=== PATIENT | male | born 1975 | race Caucasian/White ===

== ENCOUNTER 2016-10-11 10:44 | Inpatient (IN) | payer OTHER ==
[2016-10-11 12:04] LABS: Basophils % (Auto) 0.2 % (0.0-1.8); Hematocrit 40.2 % (35.5-45.6); Hemoglobin 13.8 gm/dl (11.8-15.2); Mean Corpuscular HGB Conc 34 % (32-34); Mean Corpuscular Hemoglobin 31 pg (28-32); Mean Corpuscular Volume 90 fl (84-94); Platelet Count 239 K/mm3 (140-440); Red Blood Count 4.45 M/mm3 (3.65-5.03); Red Cell Distribution Width 12.6 % (13.2-15.2); White Blood Count 9.8 K/mm3 (4.5-11.0)
[2016-10-11 12:20] LABS: Anion Gap 22 mmol/L; BUN/Creatinine Ratio 11.11; Blood Urea Nitrogen 10 mg/dL (9-20); Calcium 8.8 mg/dL (8.4-10.2); Carbon Dioxide 21 mmol/L (22-30); Glucose 113 mg/dL (75-100); Potassium 3.5 mmol/L (3.6-5.0); Sodium 128 mmol/L (137-145)
[2016-10-11 12:33] LABS: Creatine Kinase MB 21.2 ng/mL (0.0-4.0)
--- NOTE | 2016-10-11 13:08 | Emergency Department Report ---
ED General Adult HPI - General Chief complaint: Medical Clearance Stated complaint: POLICE CUST/NEEDS MED CLEARANCE Time Seen by Provider: 10/11/16 11:42 Source: patient Mode of arrival: Ambulatory Limitations: No Limitations - History of Present Illness Initial comments: The patient is brought to the emergency department for "medical clearance for long-term". Officer and the patient tell me that he was tased last night 1. 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 He is asymptomatic at this time however. He denies any dark-colored urine. He denies muscle cramps or pain. He denies nausea or vomiting. He hasn't had any diarrhea abdominal pain. Actually he is completely asymptomatic at this time. He doesn't give a history of hypertension. However his blood pressure was taken 2 and found to be 1 150/ 100. - Related Data Home Medications Medication Instructions Recorded Confirmed Last Taken No Known Home Medications [No 10/11/16 10/11/16 Unknown Reported Home Medications] Allergies Allergy/AdvReac Type Severity Reaction Status Date / Time No Known Allergies Allergy Unverified 10/11/16 11:19 ED Review of Systems ROS: Stated complaint: POLICE CUST/NEEDS MED CLEARANCE Other details as noted in HPI Constitutional: denies: chills, fever Eyes: denies: eye pain, eye discharge, vision change ENT: denies: ear pain, throat pain Respiratory: denies: cough, shortness of breath, wheezing Cardiovascular: denies: chest pain, palpitations Endocrine: no symptoms reported Gastrointestinal: denies: abdominal pain, nausea, diarrhea Genitourinary: denies: urgency, dysuria Musculoskeletal: denies: back pain, joint swelling, arthralgia Skin: denies: rash, lesions Neurological: denies: headache, weakness, paresthesias Psychiatric: denies: anxiety, depression Hematological/Lymphatic: denies: easy bleeding, easy bruising ED Past Medical Hx - Past Medical History Previous Medical History?: No - Surgical History Past Surgical History?: No - Social History Smoking Status: Never Smoker Substance Use Type: Alcohol, Marijuana, Methamphetamines - Medications Home Medications: Home Medications Medication Instructions Recorded Confirmed Last Taken Type No Known Home Medications [No 10/11/16 10/11/16 Unknown History Reported Home Medications] ED Physical Exam - General Limitations: No Limitations General appearance: alert, in no apparent distress - Head Head exam: Present: atraumatic, normocephalic - Eye Eye exam: Present: normal appearance, PERRL, EOMI. Absent: scleral icterus - ENT ENT exam: Present: mucous membranes moist - Neck Neck exam: Present: normal inspection - Respiratory Respiratory exam: Present: normal lung sounds bilaterally. Absent: respiratory distress - Cardiovascular Cardiovascular Exam: Present: regular rate, normal rhythm. Absent: systolic murmur, diastolic murmur, rubs, gallop - GI/Abdominal GI/Abdominal exam: Present: soft, normal bowel sounds. Absent: distended, tenderness, guarding, rebound, rigid, organomegaly, mass - Rectal Rectal exam: Present: deferred - Extremities Exam Extremities exam: Present: normal inspection - Back Exam Back exam: Present: normal inspection - Neurological Exam Neurological exam: Present: alert, oriented X3, CN II-XII intact. Absent: motor sensory deficit - Psychiatric Psychiatric exam: Present: normal affect, normal mood - Skin Skin exam: Present: warm, dry, intact, normal color. Absent: rash ED Course Vital Signs 10/11/16 11:10 Temperature 98.5 F Pulse Rate 107 H Respiratory 16 Rate Blood Pressure 156/101 O2 Sat by Pulse 98 Oximetry - Reevaluation(s) Reevaluation #1: Patient was found to have a CK of approximately 1800. He has a sodium of 128. He needs saline administration. However he is considerably hypertensive. I would hesitate to give him large boluses of saline under the circumstances. Therefore he was admitted to the hospitalist service for saline diuresis and monitoring of his CK and electrolytes. Discussed with Dr. Castro of the hospitalist service. 10/11/16 15:37 ED Medical Decision Making - Lab Data Result diagrams: 10/11/16 11:51 10/11/16 11:51 Laboratory Results - last 24 hr 10/11/16 10/11/16 10/11/16 11:51 11:51 11:51 WBC 9.8 RBC 4.45 Hgb 13.8 Hct 40.2 MCV 90 MCH 31 MCHC 34 RDW 12.6 L Plt Count 239 Lymph % (Auto) 7.4 L [place] % (Auto) 9.1 H Eos % (Auto) 0.0 Baso % (Auto) 0.2 Lymph # 0.7 L [place] # 0.9 H Eos # 0.0 Baso # 0.0 Seg Neutrophils % 83.3 H Seg Neutrophils # 8.2 H Sodium 128 L Potassium 3.5 L Chloride 89.0 L Carbon Dioxide 21 L Anion Gap 22 BUN 10 Creatinine 0.9 Estimated GFR > 60 BUN/Creatinine Ratio 11.11 Glucose 113 H Calcium 8.8 Total Creatine Kinase 1799 H CK-MB (CK-2) 21.2 H CK-MB (CK-2) Rel Index 1.1 Critical care attestation.: If time is entered above; I have spent that time in minutes in the direct care of this critically ill patient, excluding procedure time. ED Disposition Clinical Impression: Rhabdomyoma, Hyponatremia Hypertension Qualifiers: Hypertension type: unspecified secondary hypertension Qualified Code(s): I15.9 - Secondary hypertension, unspecified; I15 - Secondary hypertension Disposition: OP ADMITTED IP TO THIS HOSP Is pt being admited?: No Does the pt Need Aspirin: No Condition: Stable Instructions: Hypertension (ED) Time of Disposition: 15:43
[2016-10-11] MEDS ORDERED: NACL 0.9% 1000 ML 1,000 ML IV ONE ×2 (13:11→13:42)
[2016-10-11] MEDS ORDERED: K-DUR PO ONE (14:42)
--- NOTE | 2016-10-11 15:47 | History and Physical Report ---
History of Present Illness Date of examination: 10/11/16 History of present illness: 41-year-old man with history of OCD, anxiety was brought by the police to the emergency room for medical clearance. Patient stated that he was partying last night, he drank a lot and did amphetamines, he felt hot and too cough is pants and underpants, he went Outside the house and complex. The police arrived, he ran from the police senti was tased and brought to the emergency room for evaluation. He complains of left foot pain. Patient has a history of amphetamine abuse, as maintain sobriety for 3 years and then started again last night Patient denies chest pain, palpitation, shortness of breath, cough, abdominal pain, hematochezia, dysuria, frequency, focal weakness, dysarthria, fever chills , polydipsia polyuria, hot or cold intolerance, easy bruisability, or rash or bleeding from mucosal membrane, rhinorrhea, epistaxis, earache, tinnitus, blurry vision, eye discharge, anxiety, depression. Other review of systems negative PAST SURGICAL HISTORY: None SOCIAL HISTORY: Alcohol, amphetamine, no tobacco use FAMILY HISTORY: Hypertension Medications and Allergies Allergies Allergy/AdvReac Type Severity Reaction Status Date / Time No Known Allergies Allergy Unverified 10/11/16 11:19 Home Medications Medication Instructions Recorded Confirmed Last Taken Type No Known Home Medications [No 10/11/16 10/11/16 Unknown History Reported Home Medications] Active Meds: Active Medications Sodium Chloride (Nacl 0.9% 1000 Ml) 1,000 mls @ 125 mls/hr IV ONCE ONE Stop: 10/11/16 21:41 Last Admin: 10/11/16 13:49 Dose: 125 mls/hr Sodium Chloride (Nacl 0.9% 1000 Ml) 1,000 mls @ 150 mls/hr IV DIRECT LIAN Exam - Physical Exam Narrative exam: Gen. appearance: Patient lying in bed, no apparent distress HEENT: Normocephalic, atraumatic, pupils equally round and reactive to light, extraocular movement intact, and no sclericterus,. No JVD or thyromegaly or nodule,neck supple, no carotid bruit ,mucous membranes moist, no exudate or erythema Heart: S1, S2, regular rate and rhythm Lungs: Clear to auscultation bilaterally, breathing comfortable Abdomen: Positive bowel sounds, nontender, nondistended, no organomegaly Extremity: No edema, cyanosis, clubbing Skin: No rash, nodules, warm, dry Neuro: Oriented 3, cranial nerves II-12 intact, speech is fluent, motor and sensory intact - Constitutional Vitals: Temp Pulse Resp BP Pulse Ox 98.5 F 107 H 16 156/101 98 10/11/16 11:10 10/11/16 11:10 10/11/16 11:10 10/11/16 11:10 10/11/16 11:10 Results - Labs CBC & Chem 7: 10/12/16 05:04 10/14/16 16:02 Labs: Abnormal lab results 10/11/16 10/11/16 10/11/16 Range/Units 11:51 11:51 11:51 RDW 12.6 L (13.2-15.2) % Lymph % (Auto) 7.4 L (13.4-35.0) % [place] % (Auto) 9.1 H (0.0-7.3) % Lymph # 0.7 L (1.2-5.4) K/mm3 [place] # 0.9 H (0.0-0.8) K/mm3 Seg Neutrophils % 83.3 H (40.0-70.0) % Seg Neutrophils # 8.2 H (1.8-7.7) K/mm3 Sodium 128 L (137-145) mmol/L Potassium 3.5 L (3.6-5.0) mmol/L Chloride 89.0 L (98-107) mmol/L Carbon Dioxide 21 L (22-30) mmol/L Glucose 113 H (75-100) mg/dL Total Creatine Kinase 1799 H (55-170) units/L CK-MB (CK-2) 21.2 H (0.0-4.0) ng/mL Assessment and Plan Rhabdomyolysis Left foot pain Hyponatremia Hypokalemia Admits medicine Start aggressive IV fluid, patient refuses x-ray of his foot Replete potassium, check CK and sodium levels Start DVT prophylaxis
[2016-10-11] MEDS ORDERED: ZOFRAN IV PRN (18:04)
[2016-10-11] MEDS ORDERED: DULCOLAX PR PRN (18:04)
[2016-10-11] MEDS ORDERED: PERCOCET 5/325 PO PRN (18:04)
[2016-10-11] MEDS ORDERED: MILK OF MAGNESIA PO PRN (18:04)
[2016-10-11] MEDS ORDERED: TYLENOL PO PRN (18:04)
[2016-10-11 18:56] LABS: Creatine Kinase MB 26.2 ng/mL (0.0-4.0)
[2016-10-12 05:49] LABS: Basophils % (Auto) 0.1 % (0.0-1.8); Hematocrit 39.1 % (35.5-45.6); Hemoglobin 13.4 gm/dl (11.8-15.2); Mean Corpuscular HGB Conc 34 % (32-34); Mean Corpuscular Hemoglobin 32 pg (28-32); Mean Corpuscular Volume 92 fl (84-94); Platelet Count 243 K/mm3 (140-440); Red Blood Count 4.26 M/mm3 (3.65-5.03); White Blood Count 10.1 K/mm3 (4.5-11.0)
[2016-10-12 06:06] LABS: Anion Gap 18 mmol/L; Blood Urea Nitrogen 11 mg/dL (9-20); Calcium 8.4 mg/dL (8.4-10.2); Carbon Dioxide 23 mmol/L (22-30); Glucose 106 mg/dL (75-100); Potassium 3.7 mmol/L (3.6-5.0); Sodium 129 mmol/L (137-145)
[2016-10-12] MEDS: NACL 0.9% 1000 ML 1,000 ML IV SCH (07:40)
[2016-10-12] MEDS: LOVENOX SUB-Q SCH (09:29)
--- NOTE | 2016-10-12 09:57 | Admit Criteria Form ---
Admission Criteria Documentation: HYPONATREMIA; HYPERNATREMIA; HYPOKALEMIA; HYPERKALEMIA; HYPOCALCEMIA; HYPERCALCEMIA Clinical Indications for Inpatient Care (Place 'X' for any and all applicable criteria): Ongoing inpatient care may be indicated for ANY ONE of the following [G](1)(2)(3 )(5): [ X]I. Hyponatremia with ANY ONE of the following: [X ]a) Sodium less than 130 mEq/L (mmol/L) (new) (6)(22) [ ]b) Sodium less than 135 mEq/L (mmol/L) with ANY ONE of the following: [ ]i) Severe medical etiology requiring inpatient management (eg, heart failure, hypovolemia) [ ]ii) Altered mental status [ ]iii) Seizures [ ]II. Hypernatremia with ANY ONE of the following: [ ]a) Sodium greater than 155 mEq/L (mmol/L) [ ]b) Sodium greater than 150 mEq/L (mmol/L) with ANY ONE of the following: [ ] i) Altered mental status [ ]ii) Seizures [ ]iii) Severe medical etiology (eg, hypovolemia, diabetes insipidus) [ ]iv) Severe weakness [ ]v) Severe medical etiology (eg, hemolysis, infection, drug overdose) [ ]III. Hypokalemia with ANY ONE of the following: [ ]a) Potassium less than 2.5 mEq/L (mmol/L) despite outpatient and emergency treatment [ ]b) Potassium less than 3.0 mEq/L (mmol/L) with ANY ONE of the following: [ ]i) Weakness [ ]ii) Cardiac abnormality (eg, arrhythmia, conduction disturbance) [ ]iii) Cardiac ischemia [ ]iv) Ileus [ ]v) Ongoing medical cause requiring inpatient management. ( e.g., acute renal wasting, SIADH) [ ]vi) Other severe symptoms [ ] IV. Hyperkalemia with ANY ONE of the following: [ ]a) Potassium greater than 6.5 mEq/L (mmol/L) [ ]b) Potassium greater than 5 mEq/L (mmol/L) with ANY ONE of the following: [ ]i) Severe ECG findings [H] [ ]ii) Acute worsening of renal failure (creatinine greater than 2.5 mg/dL (221 micromoles/L) or significant elevation for age and size) [ ] V. Hypocalcemia with ANY ONE of the following: [ ]a) Calcium less than 7 mg/dL (1.75 mmol/L) despite outpatient and emergency treatment(19) [ ]b) Calcium less than 8 mg/dL (2 mmol/L) with significant symptoms or findings; examples include: [ ]i) Cardiac abnormality (eg, arrhythmia or conduction disturbance) [ ]ii) Altered mental status [ ]iii) Seizures [ ]iv) Breathing difficulty [ ]v) Muscle spasms [ ]. Hypercalcemia with ANY ONE of the following: [ ]a) Calcium greater than 14 mg/dL (3.5 mmol/L) [ ]b) Calcium greater than 12 mg/dL (3 mmol/L) with ANY ONE of the following: [ ]i) Significant dehydration or hypovolemia as indicated by ANY ONE of the following(2): [ ]1. Clinically significant dehydration as indicated by ANY ONE of the following: [ ]A. Acute loss of weight from baseline (5% of body weight in adults, 9% in pediatric patients) [ ]B. Hemodynamic instability [ ]C. Acute renal failure [ ]D. Serum sodium greater than 150 mEq/L (mmol/L) [ ]2) Dehydration that is persistent indicated by ALL of the following: [ ]A. Oral rehydration therapy not tolerated or insufficient to adequately correct dehydration [ ]B. Appropriate intravenous treatment (eg, fluids ) does not readily correct dehydration ie, after 12 to 24 hours of treatment) [ ]ii) Significant symptoms or findings; examples include: [ ]1) Altered mental status [ ]2) Cardiac abnormality (eg, arrhythmia, conduction disturbance) [ ]3) Cardiac abnormality (eg, arrhythmia, conduction disturbance) The original [facility] content created by [employer] has been revised. The portions of the content which have been revised are identified through the use of italic text or in bold, and [facility] has neither reviewed nor approved the modified material. All other unmodified content is copyright [facility] [employer] Please see references footnoted in the original [facility] [employer] edition 2016 Admission Criteria Met: Yes
--- NOTE | 2016-10-12 18:18 | Progress Note ---
Assessment and Plan Assessment and plan: --Rhabdomyolysis CK is trending down, preserved renal function, continue IV fluids Input-output monitoring, closely monitor CK levels and renal function --Hyponatremia; unknown etiology probably drug-induced, replacement therapy Closely monitor sodium levels consider nephrology evaluation if no improvement --Hypokalemia; replenish per protocol monitor levels Check magnesium --DVT prophylaxis with Lovenox Closely monitor the patient and adjust the management as needed Possible discharge home tomorrow if stable History Interval history: Patient was brought by the police for emergency room for medical clearance Noted to have hypo-natremia and rhabdomyolysis admitted to the hospital on IV hydration preserved renal function Patient seen and evaluated medical records reviewed No new events reported by the nursing staff Denies chest pain shortness of breath Alert awake oriented 3 not in acute distress Hospitalist Physical - Constitutional Vitals: Temp Pulse Resp BP Pulse Ox 98.3 F 80 18 165/97 98 10/12/16 15:19 10/12/16 15:19 10/12/16 15:19 10/12/16 15:19 10/12/16 08:00 General appearance: Present: no acute distress, well-nourished - EENT Eyes: Present: PERRL, EOM intact - Neck Neck: Present: supple, normal ROM - Respiratory Respiratory effort: normal Respiratory: negative: rales, rhonchi, wheezing - Cardiovascular Rhythm: regular Heart Sounds: Present: S1 & S2 - Extremities Extremities: no ischemia, pulses intact, pulses symmetrical Peripheral Pulses: within normal limits - Abdominal General gastrointestinal: soft, non-tender, non-distended, normal bowel sounds - Integumentary Integumentary: Present: clear, warm - Psychiatric Psychiatric: appropriate mood/affect, cooperative - Neurologic Neurologic: CNII-XII intact, moves all extremities Results - Labs CBC & Chem 7: 10/12/16 05:04 10/12/16 05:04 Labs: Laboratory Last Values WBC 10.1 K/mm3 (4.5-11.0) 10/12/16 05:04 RBC 4.26 M/mm3 (3.65-5.03) 10/12/16 05:04 Hgb 13.4 gm/dl (11.8-15.2) 10/12/16 05:04 Hct 39.1 % (35.5-45.6) 10/12/16 05:04 MCV 92 fl (84-94) 10/12/16 05:04 MCH 32 pg (28-32) 10/12/16 05:04 MCHC 34 % (32-34) 10/12/16 05:04 RDW 13.0 % (13.2-15.2) L 10/12/16 05:04 Plt Count 243 K/mm3 (140-440) 10/12/16 05:04 Lymph % (Auto) 10.1 % (13.4-35.0) L 10/12/16 05:04 [place] % (Auto) 9.9 % (0.0-7.3) H 10/12/16 05:04 Eos % (Auto) 0.0 % (0.0-4.3) 10/12/16 05:04 Baso % (Auto) 0.1 % (0.0-1.8) 10/12/16 05:04 Lymph # 1.0 K/mm3 (1.2-5.4) L 10/12/16 05:04 [place] # 1.0 K/mm3 (0.0-0.8) H 10/12/16 05:04 Eos # 0.0 K/mm3 (0.0-0.4) 10/12/16 05:04 Baso # 0.0 K/mm3 (0.0-0.1) 10/12/16 05:04 Seg Neutrophils % 79.9 % (40.0-70.0) H 10/12/16 05:04 Seg Neutrophils # 8.0 K/mm3 (1.8-7.7) H 10/12/16 05:04 Sodium 129 mmol/L (137-145) L 10/12/16 05:04 Potassium 3.7 mmol/L (3.6-5.0) 10/12/16 05:04 Chloride 92.0 mmol/L (98-107) L 10/12/16 05:04 Carbon Dioxide 23 mmol/L (22-30) 10/12/16 05:04 Anion Gap 18 mmol/L 10/12/16 05:04 BUN 11 mg/dL (9-20) 10/12/16 05:04 Creatinine 1.0 mg/dL (0.8-1.5) 10/12/16 05:04 Estimated GFR > 60 ml/min 10/12/16 05:04 BUN/Creatinine Ratio 11.00 % 10/12/16 05:04 Glucose 106 mg/dL (75-100) H 10/12/16 05:04 Calcium 8.4 mg/dL (8.4-10.2) 10/12/16 05:04 Total Creatine Kinase 2393 units/L (55-170) H 10/11/16 18:23 CK-MB (CK-2) 26.2 ng/mL (0.0-4.0) H 10/11/16 18:23 CK-MB (CK-2) Rel Index 1.0 (0-4) 10/11/16 18:23
[2016-10-12] MEDS ORDERED: APRESOLINE IV PRN (20:57)
[2016-10-12] MEDS: APRESOLINE PO SCH (22:00)
[2016-10-12] MEDS ORDERED: AMBIEN PO PRN (22:38)
[2016-10-13 04:37] LABS: BUN/Creatinine Ratio 11.42; Blood Urea Nitrogen 8 mg/dL (9-20); Calcium 8.2 mg/dL (8.4-10.2); Carbon Dioxide 21 mmol/L (22-30); Chloride 88.3 mmol/L (98-107); Creatine Kinase 1031 units/L (55-170); Glucose 105 mg/dL (75-100); Sodium 125 mmol/L (137-145)
[2016-10-13 04:41] LABS: Anion Gap 19 mmol/L
[2016-10-13 04:43] LABS: Potassium 2.9 mmol/L (3.6-5.0)
[2016-10-13] MEDS ORDERED: K-DUR PO ONE ×2 (05:01→09:00)
[2016-10-13] MEDS: APRESOLINE PO SCH ×3 (06:00→22:40)
[2016-10-13] MEDS: NACL 0.9% 1000 ML 1,000 ML IV SCH ×2 (08:04→17:39)
[2016-10-13] MEDS: LOVENOX SUB-Q SCH (09:00)
--- NOTE | 2016-10-13 12:51 | Progress Note ---
Assessment and Plan Assessment and plan: Rhabdomyolysis Creatinine kinase trending downwards but still elevated. His Creatine kinase 1030 today. continue IV fluids. He states he wants to be discharged and I advised against this. He is thinking about signing out AGAINST MEDICAL ADVICE. Input-output monitoring, closely monitor CK levels and renal function Hyponatremia. Etiology unclear. This is worse today with sodium of 125. 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 Hypokalemia; replenish orally, and repeat level today. Potassium level 2.9 this morning. DVT prophylaxis with Lovenox Full CODE STATUS History Interval history: No Chest pain, No shortness of breath, Patient thinking about signing out AGAINST MEDICAL ADVICE Hospitalist Physical - Physical exam Narrative exam: Gen appearance : not in acute distress, obese, HEENT: Normocephalic atraumatic, neck Neck: supple, no JVD. Lungs: clear to auscultation bilaterally, no crackles no wheezes Heart: S1 and S2 regular, no murmurs no gallop Abdomen: soft, nontender, nondistended normal bowel sounds Extremities: no edema, no clubbing or cyanosis Neuro awake alert oriented 3, no focal signs - Constitutional Vitals: Temp Pulse Resp BP Pulse Ox 97.4 F L 89 16 140/86 98 10/13/16 08:03 10/13/16 08:03 10/13/16 08:03 10/13/16 08:03 10/13/16 08:03 General appearance: Present: no acute distress, well-nourished Results - Labs CBC & Chem 7: 10/12/16 05:04 10/13/16 03:40 Labs: Laboratory Last Values WBC 10.1 K/mm3 (4.5-11.0) 10/12/16 05:04 RBC 4.26 M/mm3 (3.65-5.03) 10/12/16 05:04 Hgb 13.4 gm/dl (11.8-15.2) 10/12/16 05:04 Hct 39.1 % (35.5-45.6) 10/12/16 05:04 MCV 92 fl (84-94) 10/12/16 05:04 MCH 32 pg (28-32) 10/12/16 05:04 MCHC 34 % (32-34) 10/12/16 05:04 RDW 13.0 % (13.2-15.2) L 10/12/16 05:04 Plt Count 243 K/mm3 (140-440) 10/12/16 05:04 Lymph % (Auto) 10.1 % (13.4-35.0) L 10/12/16 05:04 [place] % (Auto) 9.9 % (0.0-7.3) H 10/12/16 05:04 Eos % (Auto) 0.0 % (0.0-4.3) 10/12/16 05:04 Baso % (Auto) 0.1 % (0.0-1.8) 10/12/16 05:04 Lymph # 1.0 K/mm3 (1.2-5.4) L 10/12/16 05:04 [place] # 1.0 K/mm3 (0.0-0.8) H 10/12/16 05:04 Eos # 0.0 K/mm3 (0.0-0.4) 10/12/16 05:04 Baso # 0.0 K/mm3 (0.0-0.1) 10/12/16 05:04 Seg Neutrophils % 79.9 % (40.0-70.0) H 10/12/16 05:04 Seg Neutrophils # 8.0 K/mm3 (1.8-7.7) H 10/12/16 05:04 Sodium 125 mmol/L (137-145) L 10/13/16 03:40 Potassium 2.9 mmol/L (3.6-5.0) L* D 10/13/16 03:40 Chloride 88.3 mmol/L (98-107) L 10/13/16 03:40 Carbon Dioxide 21 mmol/L (22-30) L 10/13/16 03:40 Anion Gap 19 mmol/L 10/13/16 03:40 BUN 8 mg/dL (9-20) L 10/13/16 03:40 Creatinine 0.7 mg/dL (0.8-1.5) L 10/13/16 03:40 Estimated GFR > 60 ml/min 10/13/16 03:40 BUN/Creatinine Ratio 11.42 % 10/13/16 03:40 Glucose 105 mg/dL (75-100) H 10/13/16 03:40 Calcium 8.2 mg/dL (8.4-10.2) L 10/13/16 03:40 Total Creatine Kinase 1031 units/L (55-170) H 10/13/16 03:40 CK-MB (CK-2) 26.2 ng/mL (0.0-4.0) H 10/11/16 18:23 CK-MB (CK-2) Rel Index 1.0 (0-4) 10/11/16 18:23
[2016-10-13 17:53] LABS: Anion Gap 18 mmol/L; BUN/Creatinine Ratio 11.42; Blood Urea Nitrogen 8 mg/dL (9-20); Carbon Dioxide 24 mmol/L (22-30); Chloride 89.2 mmol/L (98-107); Glucose 113 mg/dL (75-100); Potassium 3.3 mmol/L (3.6-5.0); Sodium 128 mmol/L (137-145)
[2016-10-13] MEDS ORDERED: K-DUR PO SCH (22:00)
[2016-10-14 06:44] LABS: Anion Gap 18 mmol/L; Blood Urea Nitrogen 6 mg/dL (9-20); Calcium 8.3 mg/dL (8.4-10.2); Carbon Dioxide 22 mmol/L (22-30); Chloride 93.4 mmol/L (98-107); Creatine Kinase 625 units/L (55-170); Glucose 100 mg/dL (75-100); Potassium 3.3 mmol/L (3.6-5.0); Sodium 130 mmol/L (137-145); Uric Acid 2.5 mg/dL (3.5-7.6)
[2016-10-14 06:48] LABS: Bilirubin,Urine NEG (Negative); Blood,Urine SM (Negative); Ketones,Urine TR mg/dL (Negative); Leukocyte Esterase,Urine NEG (Negative); Nitrite,Urine NEG (Negative); Protein,Urine <15 mg/dL mg/dL (Negative); RBC,Urine < 1.0 /HPF (0.0-6.0); Urobilinogen,Urine < 2.0 mg/dL (<2.0)
--- NOTE | 2016-10-14 08:06 | Consultation ---
History of Present Illness - Reason for Consult Consult date: 10/14/16 hyponatremia, hypokalemia - History of Present Illness Patient is a 41 year old male with history of OCD and anxiety was brought by the police to the emergency room for medical clearance. Patient took Amphetamines while partying on the day before admission. Police tased him and subsequently brought him to the emergency room for evaluation. Patient reports left 2nd and 3rd toe pain, redness and swelling. He was found to have a sodium level of 125 which was improved to 130 today. Patient was taking Prozac. He denies any chest pain, SOB, MINOR, palpitation, cough, N, V, D, abdominal pain, fever chills, polydipsia, polyuria, rash or bleeding. Past History Past Medical History: other (Anxiety, OCD) Medications and Allergies Allergies Allergy/AdvReac Type Severity Reaction Status Date / Time No Known Allergies Allergy Unverified 10/11/16 11:19 Home Medications Medication Instructions Recorded Confirmed Last Taken Type No Known Home Medications [No 10/11/16 10/11/16 Unknown History Reported Home Medications] Active Meds: Active Medications Acetaminophen (Tylenol) 650 mg PO Q4H PRN PRN Reason: Pain MILD(1-3)/Fever >100.5/MINOR Bisacodyl (Dulcolax) 10 mg [place] QDAY PRN PRN Reason: Constipation unrelieved by MOM Enoxaparin Sodium (Lovenox) 40 mg SUB-Q QDAY [facility] Last Admin: 10/13/16 09:00 Dose: 40 mg Hydralazine HCl (Apresoline) 10 mg PO Q8HR [facility] Last Admin: 10/13/16 22:40 Dose: 10 mg Hydralazine HCl (Apresoline) 10 mg IV Q4HR PRN PRN Reason: Hypertension Sodium Chloride (Nacl 0.9% 1000 Ml) 1,000 mls @ 150 mls/hr IV DIRECT [facility] Last Admin: 10/13/16 17:39 Dose: 150 mls/hr Magnesium Hydroxide (Milk Of Magnesia) 30 ml PO Q4H PRN PRN Reason: Constipation Ondansetron HCl (Zofran) 4 mg IV Q8H PRN PRN Reason: N/V unrelieved by Reglan Oxycodone/Acetaminophen (Percocet 5/325) 1 tab PO Q6H PRN PRN Reason: Pain, Moderate (4-6) Last Admin: 10/13/16 04:38 Dose: 1 tab Potassium Chloride (K-Dur) 40 meq PO Q4H LIAN Stop: 10/14/16 12:01 Zolpidem Tartrate (Ambien) 5 mg PO QHS PRN PRN Reason: Sleep Last Admin: 10/12/16 23:00 Dose: 5 mg Review of Systems Constitutional: no weight loss, no weight gain, no fever, no chills Ears, nose, mouth and throat: no sinus pain, no epistaxis Cardiovascular: no chest pain, no edema, no lightheadedness, no shortness of breath Respiratory: no cough, no shortness of breath Gastrointestinal: no abdominal pain, no nausea, no vomiting, no diarrhea, no melena Genitourinary Male: no dysuria, no hematuria Musculoskeletal: fractures Integumentary: no rash, no jaundice Neurological: no paralysis, no weakness, no headaches Psychiatric: anxiety Hematologic/Lymphatic: no easy bruising, no easy bleeding Allergic/Immunologic: no wheezing Exam - Vital Signs Vital signs: Vital Signs Temp Pulse Resp BP Pulse Ox 98.5 F 107 H 16 156/101 98 10/11/16 11:10 10/11/16 11:10 10/11/16 11:10 10/11/16 11:10 10/11/16 11:10 - General Appearance General appearance: well-developed, well-nourished, other (no distress) EENT: PERRL, mucous membranes moist, hearing intact, vision intact Neck: Present: neck supple Respiratory: Clear to Ascultation Heart: regular, S1S2, no murmurs Gastrointestinal: Present: normoactive bowel sounds. 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 Sodium level is close to normal. (2) Rhabdomyolysis Current Visit: Yes Status: Acute Plan to address problem: CK level is improving. (3) Hypokalemia Current Visit: Yes Status: Acute Plan to address problem: Replete K.
[2016-10-14] MEDS: K-DUR PO SCH ×2 (08:28→13:36)
[2016-10-14] MEDS: NACL 0.9% 1000 ML 1,000 ML IV SCH ×2 (09:11→16:14)
[2016-10-14] MEDS: LOVENOX SUB-Q SCH (09:11)
--- NOTE | 2016-10-14 11:49 | Discharge Summary ---
Providers - Providers Date of Admission: 10/11/16 14:39 Attending physician: LESLEY MICHELLE 10/13/16 08:02 Consult to Physician [CONS] Routine Consulting Provider: MAURO BEAVER Reason For Exam: Hyponatremia Place consult to:: Dr. 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
[2016-10-14] MEDS: APRESOLINE PO SCH ×3 (13:36→22:45)
[2016-10-14] MEDS: PROzac PO SCH (13:54)
--- NOTE | 2016-10-14 14:07 | XRay Report ---
Portable left foot: There is a fracture involving the distal end of the proximal second phalanx. The fracture extends into the MP joint. There is slight splaying of the fragments but otherwise good alignment. There is moderate swelling. No other abnormalities appreciated. Impression: Fracture of the second digit.
--- NOTE | 2016-10-14 14:13 | Progress Note ---
Assessment and Plan Assessment and plan: Rhabdomyolysis Creatinine kinase trending downwards, 650 but still elevated. Continue IV fluids. Input-output monitoring, closely monitor CK levels and renal function Hyponatremia. Etiology unclear. This is improved, Sodium 130 today. Nephrology following. Hypokalemia; replenish orally, and repeat level today. Potassium level 3.3 this morning. Give more oral potassium and recheck levels in the afternoon. Fracture left 2nd toe. Patient cannot say how he injured his stool. He said he was arrested few days earlier by the police and may have got injured during the arrest process. Consult Orthopedic surgeon for evaluation. DVT prophylaxis with Lovenox Full CODE STATUS History Interval history: No Chest pain, No shortness of breath, pain redness left 1st and 2nd toes Hospitalist Physical - Physical exam Narrative exam: Gen appearance : not in acute distress, obese, HEENT: Normocephalic atraumatic, neck Neck: supple, no JVD. Lungs: clear to auscultation bilaterally, no crackles no wheezes Heart: S1 and S2 regular, no murmurs no gallop Abdomen: soft, nontender, nondistended normal bowel sounds Extremities: Erythema and tenderness left 1st and 2nd toes, no clubbing or cyanosis Neuro awake alert oriented 3, no focal signs - Constitutional Vitals: Temp Pulse Resp BP Pulse Ox 98.9 F 72 18 120/90 96 10/14/16 12:00 10/14/16 13:36 10/14/16 12:00 10/14/16 13:36 10/14/16 12:00 General appearance: Present: no acute distress, well-nourished Results - Labs CBC & Chem 7: 10/12/16 05:04 10/14/16 16:02 Labs: Laboratory Last Values WBC 10.1 K/mm3 (4.5-11.0) 10/12/16 05:04 RBC 4.26 M/mm3 (3.65-5.03) 10/12/16 05:04 Hgb 13.4 gm/dl (11.8-15.2) 10/12/16 05:04 Hct 39.1 % (35.5-45.6) 10/12/16 05:04 MCV 92 fl (84-94) 10/12/16 05:04 MCH 32 pg (28-32) 10/12/16 05:04 MCHC 34 % (32-34) 10/12/16 05:04 RDW 13.0 % (13.2-15.2) L 10/12/16 05:04 Plt Count 243 K/mm3 (140-440) 10/12/16 05:04 Lymph % (Auto) 10.1 % (13.4-35.0) L 10/12/16 05:04 [place] % (Auto) 9.9 % (0.0-7.3) H 10/12/16 05:04 Eos % (Auto) 0.0 % (0.0-4.3) 10/12/16 05:04 Baso % (Auto) 0.1 % (0.0-1.8) 10/12/16 05:04 Lymph # 1.0 K/mm3 (1.2-5.4) L 10/12/16 05:04 [place] # 1.0 K/mm3 (0.0-0.8) H 10/12/16 05:04 Eos # 0.0 K/mm3 (0.0-0.4) 10/12/16 05:04 Baso # 0.0 K/mm3 (0.0-0.1) 10/12/16 05:04 Seg Neutrophils % 79.9 % (40.0-70.0) H 10/12/16 05:04 Seg Neutrophils # 8.0 K/mm3 (1.8-7.7) H 10/12/16 05:04 Sodium 130 mmol/L (137-145) L 10/14/16 05:16 Potassium 3.3 mmol/L (3.6-5.0) L 10/14/16 05:16 Chloride 93.4 mmol/L (98-107) L 10/14/16 05:16 Carbon Dioxide 22 mmol/L (22-30) 10/14/16 05:16 Anion Gap 18 mmol/L 10/14/16 05:16 BUN 6 mg/dL (9-20) L 10/14/16 05:16 Creatinine 0.8 mg/dL (0.8-1.5) 10/14/16 05:16 Estimated GFR > 60 ml/min 10/14/16 05:16 BUN/Creatinine Ratio 7.50 % 10/14/16 05:16 Glucose 100 mg/dL (75-100) 10/14/16 05:16 Osmolality 277 Mosm/kg 10/14/16 05:16 Uric Acid 2.5 mg/dL (3.5-7.6) L 10/14/16 05:16 Calcium 8.3 mg/dL (8.4-10.2) L 10/14/16 05:16 Magnesium 1.9 mg/dL (1.7-2.3) 10/13/16 16:47 Total Creatine Kinase 625 units/L (55-170) H 10/14/16 05:16 CK-MB (CK-2) 26.2 ng/mL (0.0-4.0) H 10/11/16 18:23 CK-MB (CK-2) Rel Index 1.0 (0-4) 10/11/16 18:23 TSH 4.480 mlU/mL (0.270-4.200) H 10/14/16 05:16 Urine Color Straw (Yellow) 10/14/16 06:06 Urine Turbidity Clear (Clear) 10/14/16 06:06 Urine pH 7.0 (5.0-7.0) 10/14/16 06:06 Ur Specific M[place] 1.003 (1.003-1.030) 10/14/16 06:06 Urine Protein <15 mg/dl mg/dL (Negative) 10/14/16 06:06 Urine Glucose (UA) Neg mg/dL (Negative) 10/14/16 06:06 Urine Ketones Tr mg/dL (Negative) 10/14/16 06:06 Urine Blood Sm (Negative) 10/14/16 06:06 Urine Nitrite Neg (Negative) 10/14/16 06:06 Urine Bilirubin Neg (Negative) 10/14/16 06:06 Urine Urobilinogen < 2.0 mg/dL (<2.0) 10/14/16 06:06 Ur Leukocyte Esterase Neg (Negative) 10/14/16 06:06 Urine WBC (Auto) 0.0 /HPF (0.0-6.0) 10/14/16 06:06 Urine RBC (Auto) < 1.0 /HPF (0.0-6.0) 10/14/16 06:06 U Epithel Cells (Auto) < 1.0 /HPF (0-13.0) 10/14/16 06:06
[2016-10-14 16:59] LABS: Anion Gap 15 mmol/L; BUN/Creatinine Ratio 8.88; Blood Urea Nitrogen 8 mg/dL (9-20); Carbon Dioxide 24 mmol/L (22-30); Glucose 115 mg/dL (75-100); Potassium 3.9 mmol/L (3.6-5.0); Sodium 130 mmol/L (137-145)
[2016-10-15] MEDS: NACL 0.9% 1000 ML 1,000 ML IV SCH ×2 (01:30→08:01)
[2016-10-15 06:11] LABS: Anion Gap 17 mmol/L; BUN/Creatinine Ratio 6.66; Blood Urea Nitrogen 6 mg/dL (9-20); Calcium 7.8 mg/dL (8.4-10.2); Carbon Dioxide 24 mmol/L (22-30); Chloride 102.1 mmol/L (98-107); Creatine Kinase 309 units/L (55-170); Glucose 96 mg/dL (75-100); Phosphorous 3.1 mg/dL (2.5-4.5); Sodium 139 mmol/L (137-145)
[2016-10-15] MEDS: APRESOLINE PO SCH (07:00)
--- NOTE | 2016-10-15 07:21 | Progress Note ---
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 Sodium level has improved. (2) Rhabdomyolysis Status: Acute Plan to address problem: CK level is much better. (3) Hypokalemia Status: Acute Plan to address problem: Potassium level is better. Subjective Date of service: 10/15/16 Interval history: Patient is feeling better. Objective - Vital Signs Vital signs: Vital Signs - 12hr 10/14/16 10/15/16 23:26 01:27 Temperature 98.2 F 98.2 F Pulse Rate [ 71 Apical] Pulse Rate [ 76 Right Brachial] Respiratory 20 20 Rate Blood Pressure 112/64 118/79 [Right Arm] O2 Sat by Pulse 96 97 Oximetry - General Appearance General appearance: well-developed, well-nourished, other (no distress) EENT: PERRL, mucous membranes moist, hearing intact, vision intact Neck: no JVD, no carotid bruit, supple Respiratory: Present: Clear to Ascultation Cardiology: regular, S1S2, no murmurs Gastrointestinal: normoactive bowel sounds, no tenderness, no distended, no guarding Integumentary: no rash, other (erythema of left 2nd and 3rd toes) Neurologic: no focal deficit, no asterixis, alert and oriented x3, CN 3-12 intact Musculoskeletal: other (swelling of the left 2nd and 3rd toes) Psychiatric: mood/affect appropriate, cooperative - Lab 10/12/16 05:04 10/15/16 04:59 Most recent lab results Calcium 7.8 mg/dL (8.4-10.2) L 10/15/16 04:59 Phosphorus 3.1 mg/dL (2.5-4.5) 10/15/16 04:59 Magnesium 2.0 mg/dL (1.7-2.3) 10/15/16 04:59
--- NOTE | 2016-10-15 08:01 | Consultation ---
History of Present Illness - HPI Consult date: 10/15/16 Consult reason: fracture (2 toe) Past History Past Medical History: other (Anxiety, OCD) Medications and Allergies Allergies Allergy/AdvReac Type Severity Reaction Status Date / Time No Known Allergies Allergy Unverified 10/11/16 11:19 Home Medications Medication Instructions Recorded Confirmed Last Taken Type No Known Home Medications [No 10/11/16 10/11/16 Unknown History Reported Home Medications] Active Meds: Active Medications Acetaminophen (Tylenol) 650 mg PO Q4H PRN PRN Reason: Pain MILD(1-3)/Fever >100.5/MINOR Bisacodyl (Dulcolax) 10 mg [place] QDAY PRN PRN Reason: Constipation unrelieved by MOM Enoxaparin Sodium (Lovenox) 40 mg SUB-Q QDAY [facility] Last Admin: 10/14/16 09:11 Dose: 40 mg Fluoxetine HCl (Prozac) 30 mg PO QDAY [facility] Last Admin: 10/14/16 13:54 Dose: 30 mg Hydralazine HCl (Apresoline) 10 mg PO Q8HR [facility] Last Admin: 10/14/16 13:36 Dose: 10 mg Hydralazine HCl (Apresoline) 10 mg IV Q4HR PRN PRN Reason: Hypertension Sodium Chloride (Nacl 0.9% 1000 Ml) 1,000 mls @ 150 mls/hr IV DIRECT [facility] Last Admin: 10/14/16 16:14 Dose: 150 mls/hr Magnesium Hydroxide (Milk Of Magnesia) 30 ml PO Q4H PRN PRN Reason: Constipation Ondansetron HCl (Zofran) 4 mg IV Q8H PRN PRN Reason: N/V unrelieved by Reglan Oxycodone/Acetaminophen (Percocet 5/325) 1 tab PO Q6H PRN PRN Reason: Pain, Moderate (4-6) Last Admin: 10/13/16 04:38 Dose: 1 tab Zolpidem Tartrate (Ambien) 5 mg PO QHS PRN PRN Reason: Sleep Last Admin: 10/12/16 23:00 Dose: 5 mg Assessment and Plan 41 year old admited for observation. Pain on left foot Consult dictated. Fx minimally displaced 2 toe left foot. Recomend post op shoe, ambulation. office follow up in 2 weeks. may be discharged
--- NOTE | 2016-10-15 09:38 | Discharge Summary ---
Providers - Providers Date of Admission: 10/11/16 14:39 Date of discharge: 10/15/16 Attending physician: LESLEY MICHELLE 10/13/16 08:02 Consult to Physician [CONS] Routine Consulting Provider: MAURO BEAVER Reason For Exam: Hyponatremia Place consult to:: Dr. Beaver Notified:: yes 10/14/16 14:12 Consult to Physician [CONS] Routine Consulting Provider: MAKENNA IGLESIAS V Reason For Exam: Fracture left second toe Place consult to:: Dr. Iglesias Notified:: Demi Primary care physician: [employer] Hospitalization Condition: Fair Hospital course: Patient is 41-year-old with history of anxiety, OCD. He had an alcertraction with the police and was tased , and and brought to the emergency department for medical clearance for fci. Emergency department he was found to have rhabdomyolysis with an elevated creatinine kinase of 1799, dehydration, elevated blood pressure. He was started on IV fluids and admitted. He also mentions that time pain in the left foot. X-ray of the foot was recommended but he refused. With IV fluids , creatine kinase levels decreased. Pain left foot got worse with redness in the left second toe. X-ray showed a fracture of the left second phalanx. Orthopedic surgeon was consulted and he was evaluated : outpatient follow-up was recommended. On 10/15/2016 he was re-evaluated, no chest pain, no nausea, no vomiting, vitals stable, lungs maría elena,r heart sounds normal, redness left second toe. He was stable and therefore discharged home to follow as an outpatient. Total time spent on discharge, 36 minutes Disposition: DISCHARGED TO HOME OR SELFCARE - Discharge Diagnoses (1) Hyponatremia Status: Acute (2) Rhabdomyolysis Status: Acute Qualifiers: Rhabdomyolysis type: R Encounter type: E (3) Hypokalemia Status: Acute (4) Fracture of second toe, left, closed Status: Acute (5) Amphetamine abuse Status: Acute Core Measure Documentation - Palliative Care Palliative Care/ Comfort Measures: Not Applicable - Core Measures Any of the following diagnoses?: none Exam - Constitutional Vitals: Temp Pulse Resp BP Pulse Ox 98.2 F 71 20 118/79 97 10/15/16 01:27 10/15/16 01:27 10/15/16 01:27 10/15/16 01:27 10/15/16 01:27 Plan Activity: no restrictions Diet: low fat, low cholesterol, low salt Additional Instructions: 1. Follow up with PCP in 3-5 days. 2.FRollow up with Dr. Mcgee in 2 weeks. Follow up with: PRIMARY CARE, [Primary Care Provider] - 3-5 Days
[2016-10-15] MEDS: LOVENOX SUB-Q SCH (10:07)
[2016-10-15] MEDS: PROzac PO SCH (10:08)
[2016-10-15 10:33] VITALS: BP 121/75
--- NOTE | 2016-10-16 07:20 | Consultation ---
REASON FOR CONSULTATION: Left foot pain. BRIEF HISTORY: The patient is a 41-year-old male who was admitted to the Emergency Clinic secondary to being brought to the ER by the police after running from them. The patient complaining of left foot pain. The patient has had x-rays of the foot. He is able to stand up and ambulate on the foot without any problems. Consultation was carried out in that regard. PHYSICAL EXAMINATION: The patient at bedside demonstrates an alert, oriented male who appears to be in no acute distress, who complains of some swelling and some pain about the left foot on the second toe. No abnormalities, normal alignment. Normal capillary refill. DIAGNOSTIC STUDIES: X-rays of the patient demonstrates a minimally displaced fracture of the toe. IMPRESSION: Fracture of the left toe, distal phalanx, second toe. Recommendation is for postop shoe, ambulation as tolerated, discharged as needed, and the patient to see us for followup in 2 weeks. PROGNOSIS: Good at this point. [facility]# [id number] LALO/PENELOPE
== END 2016-10-15 14:20 | disposition home or self-care (01) | DRG 558 ==
LOC: ED 10:44 → 3A 14:39 → 2B-SURG 20:40
PROVIDERS: ADMIT Internal Medicine; ATTEND Internal Medicine
DX: M62.82 Rhabdomyolysis (principal); E87.1 Hypo-osmolality and hyponatremia; M79.672 Pain in left foot; E87.6 Hypokalemia; F41.9 Anxiety disorder, unspecified; F42.9 Obsessive-compulsive disorder, unspecified; F10.10 Alcohol abuse, uncomplicated; F15.10 Other stimulant abuse, uncomplicated; F12.90 Cannabis use, unspecified, uncomplicated; S92.912A Unspecified fracture of left toe(s), initial encounter for closed fracture; Z82.49 Family history of ischemic heart disease and other diseases of the circulatory system
CPT/HCPCS: 36415; 80048; 81001; 82550; 82553; 83735; 83930; 84100; 84439; 84443; 84550; 85025; 93005; 93010; J1650; J7030